=== PATIENT | male | born 1935 | race Caucasian/White ===

== ENCOUNTER 2023-11-06 00:34 | Inpatient (IN) | payer MEDICARE, OTHER ==
[~2023-11-06 00:34] MED LIST: Adenosine 6 mg (2 mL) VIAL ONE; Heparin 10,000 UNITS/ 10 ML VIAL ONE; Nitroglycerin 50 MG/250 ML BOT 0 ML ONE; Verapamil 5 MG/2 ML VIAL ONE
[2023-11-06] MEDS ORDERED: NOREPINEPHRINE 8 MG/250 ML-D5W 250 ML ONE (01:09)
[2023-11-06 01:10] LABS: INR-International Normal Ratio 2.4; Prothrombin Time 26.7 sec (12.0-14.7)
[2023-11-06 01:15] LABS: PTT 198.8 sec (22.9-36.1)
[2023-11-06] MEDS ORDERED: fentaNYL 50 mcg/mL 1 mL Vial ONE ×2 (01:23→03:41)
[2023-11-06] MEDS ORDERED: Calcium Chloride 1 GM/10 ML Abboject SYRINGE ONE (01:35)
[2023-11-06 01:37] LABS: #Eosinphils 0.1 thou/uL (0.0-0.7); #Neutrophils 7.8 thou/uL (1.40-6.50); %Basophils 0.2 % (0.0-1.0); %Eosinophils 0.5 % (0.0-10.0); %Lymphocytes 6.6 % (21.0-51.0); %Monocytes 10.2 % (0.0-10.0); %Neutrophils 82.3 % (42.0-75.0); Hematocrit 34.5 % (42.0-52.0); Mean Corpuscular HGB CONC 31.9 g/dL (32.0-36.0); Mean Corpuscular Hemoglobin 31.2 pg (27.0-31.0); Mean Corpuscular Volume 97.7 fl (78.0-98.0); Mean Platelet Volume 11.2 fL (7.4-10.4); Platelet Count 130 10x3/uL (130-400); RBC Distribution Width 15.5 % (11.5-14.5); Red Blood Cell (RBC) Count 3.53 mill/uL (4.70-6.10); White Blood Cell (WBC) Count 9.5 10x3/uL (4.8-10.8)
[2023-11-06] MEDS ORDERED: Etomidate 40 MG (20 mL) VIAL ONE (01:43)
[2023-11-06 01:48] LABS: ALT (SGPT) 11 U/L (8-55); AST (SGOT) 15 U/L (5-34); Albumin 3.3 g/dL (3.4-4.8); Alkaline Phosphatase 78 U/L (40-110); Anion Gap 8 mmol/L (10-20); BUN (Urea Nitrogen) 25 mg/dL (8.4-25.7); Bilirubin, Total 0.6 mg/dL (0.2-1.2); Calc. Creatinine Clearance 0 mL/min (70-130); Calcium 8.4 mg/dL (7.8-10.44); Carbon Dioxide 25 mmol/L (23-31); Chloride 108 mmol/L (98-107); Estimated GFR 33; Globulin 2.9 g/dL (2.4-3.5); Glucose 133 mg/dL (83-110); Potassium 4.4 mmol/L (3.5-5.1); Protein, Total 6.2 g/dL (5.8-8.1); Sodium 137 mmol/L (136-145)
[2023-11-06 02:02] LABS: Actual Bicarbonate (HCO3a) 17.8 mEq/L (22-28); Analyzer IN Cardio ER; Base Excess (BEa) -8.8 mEq/L (-2.0 to +3.0); Calcium, Ionized (arterial) 1.22 mmol/L (1.12-1.30); Carboxyhemoglobin (COHb) 0.9 gm% (0.0-3.0); Hematocrit-ABG 41 % (42.0-52.0); Hemoglobin (Hb) 14.1 g/dL (14.0-18.0); O2 Tension (PaO2), arterial 334.4 mmHg (> 60.0); Potassium - ABG Lab 5.12 mmol/L (3.70-5.30); pH, Arterial 7.256 (7.35-7.45)
[2023-11-06 02:07] LABS: Puncture Site LRA
[2023-11-06 02:08] LABS: INR-International Normal Ratio 2.5; Prothrombin Time 26.9 sec (12.0-14.7)
[2023-11-06 02:16] LABS: PTT 192.3 sec (22.9-36.1)
[2023-11-06] MEDS ORDERED: Furosemide 40 MG (4 mL) VIAL ONE (03:30)
[2023-11-06] MEDS ORDERED: Ipratropium/Albuterol 3 ML NEB NEB PRN (03:36)
[2023-11-06] MEDS ORDERED: Ketamine In 0.9 % NaCl 50 MG/5 ML SYRINGE ONE (03:40)
[2023-11-06] MEDS ORDERED: Ipratropium/Albuterol 3 ML NEB ONE (03:42)
[2023-11-06 03:54] LABS: Actual Bicarbonate (HCO3a) 19.2 mEq/L (22-28); Analyzer IN Cardio ER; Base Excess (BEa) -8.9 mEq/L (-2.0 to +3.0); Calcium, Ionized (arterial) 1.24 mmol/L (1.12-1.30); Carboxyhemoglobin (COHb) 1.1 gm% (0.0-3.0); Hematocrit-ABG 44 % (42.0-52.0); Hemoglobin (Hb) 15.1 g/dL (14.0-18.0); Potassium - ABG Lab 4.85 mmol/L (3.70-5.30)
[2023-11-06 04:02] LABS: Troponin I 0.017 ng/mL (< 0.028)
[2023-11-06] MEDS ORDERED: Rocuronium Bromide 10 MG/ML (10ML VIAL) ONE (04:05)
[2023-11-06 04:19] LABS: pH, Arterial 7.203 (7.35-7.45)
[2023-11-06 04:20] LABS: Puncture Site LRA
[2023-11-06 04:52] LABS: Actual Bicarbonate (HCO3a) 21.4 mEq/L (22-28); Analyzer IN Cardio ER; CO2 Tension 44.6 mmHg (35.0-45.0); Calcium, Ionized (arterial) 1.22 mmol/L (1.12-1.30); Carboxyhemoglobin (COHb) 1.3 gm% (0.0-3.0); Hematocrit-ABG 41 % (42.0-52.0); O2 Tension (PaO2), arterial 210.5 mmHg (> 60.0); Potassium - ABG Lab 4.64 mmol/L (3.70-5.30); pH, Arterial 7.298 (7.35-7.45)
[2023-11-06 04:55] LABS: Puncture Site LINE
[2023-11-06] MEDS ORDERED: Ventilator Sedation Protocol 1 EACH FS SCH ×2 (05:15→05:45)
[2023-11-06] MEDS ORDERED: Propofol 1,000 MG/100 ML VIAL IV PRN (05:30)
[2023-11-06] MEDS ORDERED: Fentanyl CADD 100 ML IV SCH (05:30)
[2023-11-06] MEDS ORDERED: Lorazepam 2 MG/ML VIAL SLOW IVP PRN (05:30)
[2023-11-06] MEDS ORDERED: Morphine 2 MG/ML VIAL SLOW IVP PRN (05:30)
[2023-11-06] MEDS ORDERED: DISCONTINUE PREVIOUS NARCOTIC PAIN MEDICATIONS AND BENZODIAZEPINES FS SCH (05:30)
[2023-11-06] MEDS ORDERED: Fentanyl BOLUS 250 ML IVPB PRN (05:30)
[2023-11-06] MEDS ORDERED: Propofol BOLUS 1,000 MG/100 ML VIAL IV PRN (05:30)
[2023-11-06] MEDS ORDERED: Ondansetron ODT 4 MG TAB PO PRN (05:37)
[2023-11-06] MEDS ORDERED: Acetaminophen 650 MG Suppository PR PRN (05:37)
[2023-11-06] MEDS ORDERED: Acetaminophen 325 MG TAB PO PRN (05:37)
[2023-11-06] MEDS ORDERED: Ondansetron PF 4 MG/2 ML Vial IVP PRN (05:37)
[2023-11-06] MEDS: Protamine Sulfate 50 MG/5 ML VIAL SLOW IVP SCH (06:45)
[2023-11-06] MEDS: Ipratropium/Albuterol 3 ML NEB NEB SCH (06:56)
[2023-11-06] MEDS ORDERED: NOREPINEPHRINE 8 MG/250 ML-D5W 250 ML IVPB SCH (07:30)
[2023-11-06 09:01] LABS: #Monocytes 0.5 thou/uL (0.11-0.59); #Neutrophils 8.2 thou/uL (1.40-6.50); %Basophils 0.2 % (0.0-1.0); %Eosinophils 0.2 % (0.0-10.0); %Lymphocytes 4.7 % (21.0-51.0); %Monocytes 5.2 % (0.0-10.0); %Neutrophils 89.2 % (42.0-75.0); Mean Corpuscular HGB CONC 31.7 g/dL (32.0-36.0); Mean Corpuscular Hemoglobin 30.1 pg (27.0-31.0); Mean Corpuscular Volume 95.1 fl (78.0-98.0); Mean Platelet Volume 10.6 fL (7.4-10.4); Platelet Count 129 10x3/uL (130-400); RBC Distribution Width 16.9 % (11.5-14.5); Red Blood Cell (RBC) Count 4.91 mill/uL (4.70-6.10); White Blood Cell (WBC) Count 9.2 10x3/uL (4.8-10.8)
[2023-11-06 09:12] LABS: Hematocrit 46.7 % (42.0-52.0); Hemoglobin 14.8 g/dL (14.0-18.0)
[2023-11-06] MEDS: Pantoprazole 40 MG VIAL IVP SCH (09:14)
[2023-11-06 09:26] LABS: Troponin I Less than 0.010 ng/mL (< 0.028)
[2023-11-06 09:51] LABS: Chloride 106 mmol/L (98-107); Potassium 4.2 mmol/L (3.5-5.1); Sodium 135 mmol/L (136-145)
[2023-11-06 09:52] LABS: Albumin 3.7 g/dL (3.4-4.8); Anion Gap 13 mmol/L (10-20); BUN (Urea Nitrogen) 30 mg/dL (8.4-25.7); Bilirubin, Total 5.4 mg/dL (0.2-1.2); Calc. Creatinine Clearance 28 mL/min (70-130); Calcium 9.2 mg/dL (7.6-10.4); Carbon Dioxide 20 mmol/L (23-31); Estimated GFR 27; Glucose 163 mg/dL (83-110); Protein, Total 6.7 g/dL (5.8-8.1)
[2023-11-06 09:53] LABS: ALT (SGPT) 25 U/L (8-55); AST (SGOT) 35 U/L (5-34); Alkaline Phosphatase 80 U/L (40-110)
[2023-11-06] MEDS ORDERED: Iopamidol 370 76% 100 ML VIAL ONE (10:13)
[2023-11-06] MEDS ORDERED: Iopamidol-370 76% 500 ML MDV (1 ML CHARGE) ONE (10:15)
[2023-11-06] MEDS: Albumin 25% 25 GM (100 mL) BOT IVPB SCH (23:08)
[2023-11-07 03:57] LABS: #Basophils 0.1 thou/uL (0.0-0.2); #Eosinphils 0.1 thou/uL (0.0-0.7); #Neutrophils 7.3 thou/uL (1.40-6.50); %Basophils 0.6 % (0.0-1.0); %Eosinophils 0.5 % (0.0-10.0); %Lymphocytes 11.1 % (21.0-51.0); %Monocytes 10.3 % (0.0-10.0); %Neutrophils 77.1 % (42.0-75.0); Hematocrit 43.5 % (42.0-52.0); Hemoglobin 13.8 g/dL (14.0-18.0); Mean Corpuscular HGB CONC 31.7 g/dL (32.0-36.0); Mean Corpuscular Hemoglobin 30.3 pg (27.0-31.0); Mean Corpuscular Volume 95.4 fl (78.0-98.0); Mean Platelet Volume 10.9 fL (7.4-10.4); Platelet Count 122 10x3/uL (130-400); RBC Distribution Width 16.8 % (11.5-14.5); Red Blood Cell (RBC) Count 4.56 mill/uL (4.70-6.10); White Blood Cell (WBC) Count 9.5 10x3/uL (4.8-10.8)
[2023-11-07 04:27] LABS: ALT (SGPT) 46 U/L (8-55); AST (SGOT) 63 U/L (5-34); Albumin 3.6 g/dL (3.4-4.8); Alkaline Phosphatase 67 U/L (40-110); Anion Gap 14 mmol/L (10-20); BUN (Urea Nitrogen) 44 mg/dL (8.4-25.7); Bilirubin, Total 3.9 mg/dL (0.2-1.2); Calc. Creatinine Clearance 20 mL/min (70-130); Carbon Dioxide 24 mmol/L (23-31); Chloride 105 mmol/L (98-107); Estimated GFR 19; Globulin 2.8 g/dL (2.4-3.5); Glucose 107 mg/dL (83-110); Potassium 5.3 mmol/L (3.5-5.1); Protein, Total 6.4 g/dL (5.8-8.1); Sodium 138 mmol/L (136-145)
[2023-11-07 05:04] LABS: Phosphorus 5.7 mg/dL (2.3-4.7)
[2023-11-07] MEDS: DC Sedation Protocol FS ONE (09:35)
[2023-11-07] MEDS: Simethicone Chewable 80 MG TAB PO SCH (13:52)
[2023-11-07] MEDS: Metoclopramide HCl 10 MG (2 mL) VIAL IVP SCH (18:39)
[2023-11-07] MEDS: Mometasone 200 MCG/Formoterol 5 MCG 120 PUFF INHALER INH SCH (19:00)
[2023-11-07] MEDS: Senokot S 8.6-50 MG TAB PO SCH (20:26)
[2023-11-07] MEDS: Amiodarone 200 MG TAB PO SCH (20:26)
[2023-11-08] MEDS: Labetalol HCl 100 MG/20 ML VIAL SLOW IVP PRN (02:43)
[2023-11-08 02:56] LABS: #Eosinphils 0.1 thou/uL (0.0-0.7); #Monocytes 0.9 thou/uL (0.11-0.59); %Basophils 0.3 % (0.0-1.0); %Eosinophils 1.2 % (0.0-10.0); %Lymphocytes 8.6 % (21.0-51.0); %Monocytes 11.6 % (0.0-10.0); Hematocrit 39.2 % (42.0-52.0); Hemoglobin 12.6 g/dL (14.0-18.0); Mean Corpuscular HGB CONC 32.1 g/dL (32.0-36.0); Mean Corpuscular Hemoglobin 29.9 pg (27.0-31.0); Mean Corpuscular Volume 93.1 fl (78.0-98.0); Mean Platelet Volume 11.3 fL (7.4-10.4); Platelet Count 109 10x3/uL (130-400); RBC Distribution Width 16.3 % (11.5-14.5); Red Blood Cell (RBC) Count 4.21 mill/uL (4.70-6.10); White Blood Cell (WBC) Count 7.7 10x3/uL (4.8-10.8)
[2023-11-08 03:43] LABS: Anion Gap 13 mmol/L (10-20); BUN (Urea Nitrogen) 39 mg/dL (8.4-25.7); Calc. Creatinine Clearance 28 mL/min (70-130); Calcium 9.1 mg/dL (7.8-10.44); Carbon Dioxide 23 mmol/L (23-31); Chloride 105 mmol/L (98-107); Estimated GFR 27; Glucose 83 mg/dL (83-110); Potassium 4.4 mmol/L (3.5-5.1); Sodium 137 mmol/L (136-145)
[2023-11-08] MEDS: Polyethylene Glycol 3350 17 GM Packet PO SCH (08:11)
[2023-11-08] MEDS: Magnesium Citrate 300 ML BOT PO SCH (11:23)
[2023-11-08 13:39] VITALS: BMI 28.8
[2023-11-08] MEDS: Simethicone Chewable 80 MG TAB PO PRN (17:13)
[2023-11-08] MEDS: QUEtiapine 25 MG TAB PO SCH (20:32)
[2023-11-08] MEDS: hydrALAZINE 20 MG/ML VIAL SLOW IVP PRN (23:48)
[2023-11-09 04:23] LABS: #Eosinphils 0.1 thou/uL (0.0-0.7); #Monocytes 0.7 thou/uL (0.11-0.59); #Neutrophils 5.1 thou/uL (1.40-6.50); %Basophils 0.3 % (0.0-1.0); %Eosinophils 0.8 % (0.0-10.0); %Lymphocytes 10.2 % (21.0-51.0); %Monocytes 10.8 % (0.0-10.0); %Neutrophils 77.7 % (42.0-75.0); Hematocrit 41.6 % (42.0-52.0); Hemoglobin 13.1 g/dL (14.0-18.0); Mean Corpuscular HGB CONC 31.5 g/dL (32.0-36.0); Mean Corpuscular Volume 95.2 fl (78.0-98.0); Mean Platelet Volume 11.1 fL (7.4-10.4); RBC Distribution Width 16.1 % (11.5-14.5); Red Blood Cell (RBC) Count 4.37 mill/uL (4.70-6.10); White Blood Cell (WBC) Count 6.6 10x3/uL (4.8-10.8)
[2023-11-09 04:32] LABS: Platelet Count 102 10x3/uL (130-400)
[2023-11-09 05:12] LABS: Anion Gap 11 mmol/L (10-20); BUN (Urea Nitrogen) 40 mg/dL (8.4-25.7); Calc. Creatinine Clearance 29 mL/min (70-130); Calcium 9.4 mg/dL (7.8-10.44); Carbon Dioxide 27 mmol/L (23-31); Chloride 105 mmol/L (98-107); Estimated GFR 29; Glucose 115 mg/dL (83-110); Sodium 138 mmol/L (136-145)
[2023-11-09 16:05] LABS: ALT (SGPT) 78 U/L (8-55); AST (SGOT) 87 U/L (5-34)
[2023-11-09] MEDS: Ipratropium/Albuterol 3 ML NEB NEB SCH (19:33)
[2023-11-10 05:31] LABS: #Eosinphils 0.2 thou/uL (0.0-0.7); #Monocytes 0.8 thou/uL (0.11-0.59); #Neutrophils 4.1 thou/uL (1.40-6.50); %Basophils 0.7 % (0.0-1.0); %Lymphocytes 13.9 % (21.0-51.0); %Monocytes 12.8 % (0.0-10.0); %Neutrophils 69.4 % (42.0-75.0); Hematocrit 41.6 % (42.0-52.0); Hemoglobin 13.3 g/dL (14.0-18.0); Mean Corpuscular Hemoglobin 30.5 pg (27.0-31.0); Mean Corpuscular Volume 95.4 fl (78.0-98.0); Mean Platelet Volume 10.7 fL (7.4-10.4); Platelet Count 97 10x3/uL (130-400); RBC Distribution Width 15.9 % (11.5-14.5); Red Blood Cell (RBC) Count 4.36 mill/uL (4.70-6.10)
[2023-11-10 06:30] LABS: Anion Gap 12 mmol/L (10-20); BUN (Urea Nitrogen) 41 mg/dL (8.4-25.7); Calc. Creatinine Clearance 32 mL/min (70-130); Calcium 9.3 mg/dL (7.8-10.44); Carbon Dioxide 25 mmol/L (23-31); Chloride 105 mmol/L (98-107); Estimated GFR 33; Glucose 101 mg/dL (83-110); Potassium 4.5 mmol/L (3.5-5.1); Sodium 137 mmol/L (136-145)
[2023-11-10] MEDS ORDERED: Amiodarone 200 MG TAB PO SCH (09:00)
[2023-11-10] MEDS: Milk Of Magnesia 30 ML UDCUP PO SCH (18:11)
[2023-11-11 04:02] LABS: ALT (SGPT) 59 U/L (8-55); AST (SGOT) 49 U/L (5-34); Albumin 3.5 g/dL (3.4-4.8); Alkaline Phosphatase 104 U/L (40-110); Anion Gap 14 mmol/L (10-20); BUN (Urea Nitrogen) 40 mg/dL (8.4-25.7); Bilirubin, Total 1.9 mg/dL (0.2-1.2); Calc. Creatinine Clearance 32 mL/min (70-130); Calcium 9.3 mg/dL (7.8-10.44); Carbon Dioxide 24 mmol/L (23-31); Chloride 105 mmol/L (98-107); Estimated GFR 33; Globulin 3.2 g/dL (2.4-3.5); Glucose 108 mg/dL (83-110); Potassium 4.7 mmol/L (3.5-5.1); Protein, Total 6.7 g/dL (5.8-8.1); Sodium 138 mmol/L (136-145)
[2023-11-11 13:19] VITALS: TEMP 97.8
[2023-11-11 15:08] VITALS: BP 110/53
== END 2023-11-11 17:30 | disposition home or self-care (01) | DRG 208 ==
LOC: ERS 00:34 → CCU 03:16
PROVIDERS: ADMIT Student in an Organized Health Care Education/Training Program; ATTEND Family Medicine
PROC: 5A1935Z Respiratory Ventilation, Less than 24 Consecutive Hours (ICD-10-PCS; principal; 2023-11-06)
PROC: 0BH17EZ Insertion of Endotracheal Airway into Trachea, Via Natural or Artificial Opening (ICD-10-PCS; 2023-11-06)
DX: J96.01 Acute respiratory failure with hypoxia (principal); I71.00 Dissection of unspecified site of aorta; I48.92 Unspecified atrial flutter; N17.9 Acute kidney failure, unspecified; J96.02 Acute respiratory failure with hypercapnia; Z95.0 Presence of cardiac pacemaker; Z79.01 Long term (current) use of anticoagulants; Z85.118 Personal history of other malignant neoplasm of bronchus and lung; I73.9 Peripheral vascular disease, unspecified; N18.9 Chronic kidney disease, unspecified
CPT/HCPCS: 31500; 36415; 36416; 36430; 36556; 36600; 51702; 71045; 71275; 75635; 76700; 80048; 80053; 82805; 83605; 83735; 84100; 84450; 84460; 84484; 85025; 85610; 85730; 86850; 86900; 86901; 87040; 93005; 93010; 93306; 94640; 96365; 96366; 96368; 96375; 96376; 99292; C9113; J0153; J0360; J1644; J1940; J2720; J2765; J3010; J3490; J7620; P9016; P9047; P9048; Q9967